=== PATIENT | female | born 1995 ===

== ENCOUNTER 2022-10-29 21:55 | Emergency (ER) | payer SELFPAY ==
[2022-10-29 22:25] VITALS: BP 113/72; PULSE 86; RESP 16; TEMP 36; O2SAT 97; BMI 46.4
== END 2022-10-30 00:16 | disposition left against medical advice (07) ==
PROVIDERS: Emergency Provider Emergency Medicine
DX: S99.929A Unspecified injury of unspecified foot, initial encounter (principal); W20.8XXA Other cause of strike by thrown, projected or falling object, initial encounter; Y93.9 Activity, unspecified; Y92.9 Unspecified place or not applicable; Y99.0 Civilian activity done for income or pay
CPT/HCPCS: 99281

== ENCOUNTER 2023-03-20 08:30 | Emergency (ER) | payer OTHER, SELFPAY ==
--- NOTE | ~2023-03-20 | XR_ITS ---
EXAMINATION: XR KNEE, LEFT CLINICAL INFORMATION: Left knee pain. COMPARISON: None available. TECHNIQUE: Four views of the left knee. FINDINGS: Alignment is anatomic. Joint spaces are maintained. No displaced fracture. No significant joint effusion. XR/XR knee LT 2V IMPRESSION: No acute abnormality.
[2023-03-20 08:32] VITALS: BP 140/74; PULSE 98; RESP 16; TEMP 36.6; O2SAT 98; BMI 42.5
--- NOTE | 2023-03-20 10:13 | ED_ITS ---
HPI - General Adult General Chief complaint: Extremity Injury, Lower Stated complaint: L knee injury Time Seen by Provider: 03/20/23 09:20 Source: patient Mode of arrival: ambulatory Limitations: no limitations History of Present Illness HPI narrative: 27-year-old female presents to ED for left knee injury. Patient states fell on an escalator this morning. Patient states she fell onto her left knee only. Patient denies hitting head or loss of consciousness. Patient states no other complaints. Patient up-to-date with tetanus Related Data Previous Rx's Medication Instructions Recorded naproxen 500 mg tablet 500 mg PO BID PRN pain 7 days #14 03/20/23 tabs Allergies Allergy/AdvReac Type Severity Reaction Status Date / Time No Known Allergies Allergy Unverified 10/29/22 22:30 Review of Systems 2 Review of Systems: left knee injury Yes all other systems are reviewed and are negative [facility] Social History Social History Advance Directives: No Advance Directives Information Provided: Yes Physical Exam ED Vital Signs: Vital Signs - 24 hr 03/20/23 08:32 Temperature 97.8 F Pulse Rate 98 Respiratory Rate 16 Blood Pressure 140/74 H Pulse Oximetry 98 Oxygen Delivery Method Room Air BMI result Body Mass Index 42.5 Const General: cooperative, healthy appearing, comfortable, no acute distress, well developed, alert, awake and Physically active Orientation/consciousness: oriented to person, oriented to place, oriented to time and patient oriented x3 HENMT Head: Yes normal to inspection, Yes No palpable skull fracture present, Yes normocephalic, Yes atraumatic and No abrasion Eyes General: appearance normal, both eyes and all related structures Neck Neck: Yes normal visual inspection, Yes full ROM, Yes no lymphadenopathy, Yes no meningeal signs, Yes trachea midline, Yes supple, No anterior neck swelling and No tender Chest Chest palpation & inspection: normal inspection of the chest and normal palpation of entire chest wall Resp Effort & Inspection: normal respiratory effort and able to speak in complete sentences Auscultation: clear to auscultation bilaterally Cardio Jugular venous distension: no JVD Heart sounds: S1 normal heart sound present and S2 normal heart sound present GI Inspection: Yes normal to inspection Palpation (GI): Soft to palpation, not firm, nontender, no guarding and not rigid General: Yes no CVA tenderness Back/Spine/Pelvis Back: no CVA tenderness and No back tenderness Skin General skin exam: no rashes or lesions noted, elasticity normal and turgor normal Neuro General: oriented to person, oriented to place, oriented to time, patient oriented x3, gait normal, tone normal, moves all extremities, Normal light touch and pain sensation, no meningeal signs, no focal motor deficits, CN's II-XI intact bilaterally and normal sensation to monofilament Extrem General: Yes normal to inspection and Yes full ROM Knee images: 2 1. small abrasions. tenderness around palpation of knee. negative for any deformity, erythema, ecchymosis, stiffness, or elasticity. Whole extremity motor/neuro /vascular exam intact. Psych Appearance: grossly normal, well kempt and not disheveled Medical Decision Making Medical Decision Making MDM Narrative: 27-year-old female healthy presents to ED for left knee pain after falling onto knee on escalator. Small abrasion does not need laceration repair. Up-to-date with tetanus. X-ray negative for fracture. Patient does not want any pain meds. Differential Diagnosis Differential Diagnoses: The differential diagnosis associated with the presentation includes ( knee fracture. Knee dislocation.) Admission/Observation Consideration of admission/observation: Escalation of care including admission/observation considered Independent Interpretation I performed an independent interpretation of an: Plain X-Ray Radiology Impression Discussion of test interpretation with radiology: I have reviewed the radiologist's reading. External Record Review External record reviewed: Other (Prior visits) Prescription Management I considered prescription management with: Pain Medication Discharge Plan Discharge Clinical Impression: Contusion of knee Patient Disposition: Home, Self-Care Instructions: Contusion in Adults (ED) Additional Instructions: Your knee x-ray came back normal. Return to the ED immediately for any redness, swelling, stiffness, bluish black discoloration, foul odor, pus discharge, worsening pain, inability to walk, or any other concerning symptoms. Please follow-up your primary care provider. recommend rest, elevation, and ice the extremity Prescriptions: New naproxen 500 mg tablet 500 mg PO BID PRN (Reason: pain) 7 Days Qty: 14 0RF Stand Alone Forms: Work/School Release Interventions: ED Discharge Assessment Last Done: 03/20/23 10:57 Discharge Date/Time: 03/20/23 10:59 Print Language: Bahamian
== END 2023-03-20 10:59 | disposition home or self-care (01) ==
PROVIDERS: Emergency Provider Emergency Medicine Emergency Medical Services
DX: S80.02XA Contusion of left knee, initial encounter (principal); W10.0XXA Fall (on)(from) escalator, initial encounter; Y93.9 Activity, unspecified; Y92.9 Unspecified place or not applicable; Y99.9 Unspecified external cause status
CPT/HCPCS: 73560; 99283

== ENCOUNTER 2023-03-25 10:13 | Emergency (ER) | payer OTHER, SELFPAY ==
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
[2023-03-25 11:33] VITALS: BP 113/76; PULSE 71; RESP 16; TEMP 36.2; O2SAT 98; BMI 42.5
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
== END 2023-03-25 14:29 | disposition home or self-care (01) ==
PROVIDERS: Emergency Provider Emergency Medicine
DX: S16.1XXA Strain of muscle, fascia and tendon at neck level, initial encounter (principal); S50.01XA Contusion of right elbow, initial encounter; V43.62XA Car passenger injured in collision with other type car in traffic accident, initial encounter; Y93.89 Activity, other specified; Y92.414 Local residential or business street as the place of occurrence of the external cause; Y99.9 Unspecified external cause status
CPT/HCPCS: 73080; 99283

== ENCOUNTER 2024-03-20 11:53 | Emergency (ER) | payer OTHER, SELFPAY ==
--- NOTE | ~2024-03-20 | XR_ITS ---
CLINICAL HISTORY: Chest pain 1 view chest x-ray. Comparison: None Findings: The lungs are adequately expanded. No focal consolidation. No effusion or pneumothorax. Cardiac and mediastinal contours are within normal limits. No acute osseous abnormality Impression: No acute process. This document has been electronically signed by: Daron Romero MD on 03/20/2024 12:36:39
[2024-03-20 12:12] VITALS: BP 113/82; PULSE 82; RESP 18; TEMP 36.8; O2SAT 98; BMI 46.2
--- NOTE | 2024-03-20 12:15 | ED_ITS ---
HPI - General Adult General Chief complaint: Upper Respiratory Symptoms Stated complaint: URI Time Seen by Provider: 03/20/24 13:06 Source: patient Mode of arrival: ambulatory Limitations: no limitations History of Present Illness ED Provider: JÚNIOR BAILEY PA-C HPI narrative: 28 year old female presents to the ED today for evaluation of headache, dry cough, sneezing and nausea without vomiting x5 days. worsening yesterday. No known sick contacts. Denies fever, chills, sore throat, sputum production, vomiting, diarrhea, abdominal pain, sob. Related Data Previous Rx's ?Medication ?Instructions ?Recorded naproxen 500 mg tablet 500 mg PO BID PRN pain 7 days #14 03/20/23 tabs ibuprofen 600 mg tablet 600 mg PO Q6H PRN pain #20 tabs 03/25/23 benzonatate 100 mg capsule 100 mg PO BID PRN cough #20 caps 03/20/24 penicillin V potassium 500 mg 500 mg PO BID 10 days #20 tabs 03/20/24 tablet Allergies Allergy/AdvReac Type Severity Reaction Status Date / Time No Known Allergies Allergy Verified 03/20/24 12:15 Review of Systems Review of Systems: Constitutional: No fever, chills, fatigue, night sweats, weight changes ENT/Mouth: No ear pain, hearing loss, nasal congestion, sinus pain, rhinorrhea, sore throat, odynophagia, dysphagia Eyes: No eye pain, swelling, redness, vision changes, discharge Cardio: No chest pain, palpitations, SILVA, orthopnea, peripheral edema Pulm: No SOB, sputum, wheezing, dyspnea, hemoptysis, +cough GI: No nausea, vomiting, hematemesis, abdominal pain, diarrhea, constipation, hematochezia, melena : No irregular bleeding, dysuria, frequency, urgency, hesitancy, hematuria, flank pain MSK: No back pain, neck pain, joint pain, myalgias Skin: No lesions, rashes Neuro: No weakness, numbness, paresthesias, LOC, dizziness, +headache All other systems reviewed and are negative. [facility] Past Medical History Attestation statement: The following information was validated with the patient. Source: old records reviewed and nursing notes reviewed Social History Social History Advance Directives: No Advance Directives Information Provided: No Do you have a plan to hurt others: No Plan Physical Exam ED Vital Signs: Vital Signs - 24 hr 03/20/24 12:12 03/20/24 14:26 Temperature 98.2 F 98.2 F Pulse Rate 82 82 Respiratory Rate 18 18 Blood Pressure 113/82 113/82 Pulse Oximetry 98 98 Oxygen Delivery Method Room Air Room Air BMI result Body Mass Index 46.2 Vital signs stable, afebrile General: Well appearing, in no acute distress. Skin: Warm, dry, intact. No rashes or lesions. Head: Normocephalic, atraumatic. EENT: Hearing is intact b/l. PERRLA. EOM intact. Moist mucous membranes.? Posterior oropharynx mildly erythematous without edema. No tonsillar exudates or peritonsillar masses. Uvula midline. Controlling secretions and speaking in complete sentences. Neck: Supple without LAD Cardiac: Chest wall symmetric. RRR. No MRG. No JVD. Lungs: Normal respiratory effort without accessory muscle use. CTA bilaterally. No rales, rhonchi, or wheezes.? Abdomen: Soft, non-tender, non-distended. No rebound tenderness or guarding. Neuro: AOx3. Normal speech. Ambulating with steady gait. Course Course Course Narrative: RME: 28-year-old female presents to the ED for URI symptoms concerns of cough fever chills headache and body aches. 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 SARs strep chest x-ray ordered. Well-appearing Reevaluation(s) Reevaluation #1: Negative for flu, COVID, RSV. Chest x-ray without focal consolidation or infiltrate to suggest pneumonia. She was tested positive for strep pharyngitis. Will send penicillin to pharmacy for treatment. Tessalon sent to pharmacy for cough. Patient has remained stable throughout ED visit today. Discussed worrisome signs and symptoms and when to return to the ED. All questions answered at this time. Patient is agreeable with disposition and stable for discharge. Medical Decision Making Medical Decision Making MDM Narrative: 28 year old female presents to the ED today for evaluation of headache, dry cough, sneezing and nausea without vomiting x5 days. Vital signs stable, afebrile. She is nontoxic-appearing and in no acute distress. Exam is quite benign. Clinical concern for strep throat, pneumonia, bronchitis, viral syndrome. Unlikely [employer], retropharyngeal abscess, dental abscess, epiglottis, acute respiratory distress. Viral swabs, strep swabs and chest x-ray obtained prior to my assumption of care. Plan to review and re-evaluate. Differential Diagnosis Differential Diagnoses: The differential diagnosis associated with the presentation includes as above. Admission/Observation Not indicated Lab Data MDM Lab Attestation statement: I reviewed the patient's lab results. as above Labs: Lab Results 03/20/24 Range/Units 12:19 Influenza Type A (PCR) NEGATIVE (Negative) Influenza Type B (PCR) NEGATIVE (Negative) RSV RNA Qual (PCR) NEGATIVE (Negative) SARS-CoV-2 RNA (RT-PCR) NEGATIVE (Negative) S. pyogenes GrpA REESE Positive A (Negative) Independent Interpretation I performed an independent interpretation of an: Plain X-Ray Interpretation: Chest x-ray without focal consolidation or infiltrate Radiology Impression Discussion of test interpretation with radiology: I have reviewed the radiologist's reading. Radiologist Impression: Procedure(s): XR chest 1V Accession Number(s): [id number] cc: Jax Walker; Physician,None ~ CLINICAL HISTORY: Chest pain 1 view chest x-ray. Comparison: None Findings: The lungs are adequately expanded. No focal consolidation. No effusion or pneumothorax. Cardiac and mediastinal contours are within normal limits. No acute osseous abnormality Impression: No acute process. This document has been electronically signed by: Daron Romero MD on 03/20/2024 12:36:39 External Record Review External record reviewed: Inpatient record Prescription Management I considered prescription management with: Antibiotic (Penicillin) and Other (Tessalon Perles) Social Determinants Patient?s care significantly limited by Social Determinants of Health including: Other Social Determinant of Health Critical Care Time Critical Care Time Critical Care Time: No Discharge Plan Discharge Clinical Impression: Strep pharyngitis Patient Disposition: Home, Self-Care Instructions: Pharyngitis (ED), Strep Throat (ED) Additional Instructions: You tested positive for strep throat. You tested negative for covid, flu, and rsv. Your chest xray is normal. Penicillin is an antibiotic that has been sent to your pharmacy. Take this twice daily for the next 10 days to treat strep throat. Do not stop taking these antibiotics early or miss any doses as this may cause infection to return or worsen. Tessalon perles have been sent to your pharmacy for you to take as needed for cough. Take Tylenol and ibuprofen as needed for body aches or fevers. Make sure to change your toothbrush as this contains bacteria. Strep throat is contagious. If anyone else in your household is exhibiting symptoms, please advise them to come to the ED, urgent care, or to see their primary care provider. Follow up with your primary care provider this week. Return to the Emergency Department if you experience worsening or uncontrolled pain, tongue swelling, difficulty swallowing, change in your voice, difficulty breathing, fevers 100.4?F or greater, recurrent vomiting, development of a rash, or any other concerning symptoms. In the case of emergency, call 911.? Prescriptions: New penicillin V potassium 500 mg tablet 500 mg PO BID 10 Days Qty: 20 0RF benzonatate 100 mg capsule 100 mg PO BID PRN (Reason: cough) Qty: 20 0RF No Action ibuprofen 600 mg tablet 600 mg PO Q6H PRN (Reason: pain) Qty: 20 0RF naproxen 500 mg tablet 500 mg PO BID PRN (Reason: pain) 7 Days Qty: 14 0RF Referrals: [facility] – [place] Family Medicine [Provider Group] [facility] – [place] [facility] [Provider Group] [facility] – [place] [facility] [Provider Group] Stand Alone Forms: Work/School Release Interventions: ED Discharge Assessment Last Done: 03/20/24 14:26 Discharge Date/Time: 03/20/24 14:26 Print Language: French
[2024-03-20 12:40] LABS: IDNOW Serial# 58CA691E; Strep A Nucleic Acid Positive (Negative)
[2024-03-20 13:17] LABS: Influenza A PCR NEGATIVE (Negative); Influenza B PCR NEGATIVE (Negative); Resp Syncy Virus RNA Qual PCR NEGATIVE (Negative); SARS COV2 PCR INHOUSE NEGATIVE (Negative)
[2024-03-20 14:26] VITALS: BP 113/82; PULSE 82; RESP 18; TEMP 36.8; O2SAT 98
== END 2024-03-20 14:26 | disposition home or self-care (01) ==
PROVIDERS: Physician Assistant; Emergency Provider Emergency Medicine
DX: J02.0 Streptococcal pharyngitis (principal); R05.9 Cough, unspecified; R51.9 Headache, unspecified; R07.89 Other chest pain; R11.0 Nausea; Z03.818 Encounter for observation for suspected exposure to other biological agents ruled out
CPT/HCPCS: 0241U; 71045; 87651; 99282; 99283; 99284

== ENCOUNTER → 2024-03-20 12:14 | Outpatient (BNV) | payer OTHER, SELFPAY | PROVIDERS: Visit Provider Radiology Vascular & Interventional Radiology | DX: R07.9 Chest pain, unspecified (principal) | CPT/HCPCS: 71045 ==

== ENCOUNTER 2024-08-20 16:49 | Emergency (ER) | payer OTHER, SELFPAY ==
[2024-08-20 16:53] VITALS: BP 120/75; PULSE 92; RESP 18; TEMP 36.8; O2SAT 95; BMI 44.8
--- NOTE | 2024-08-20 16:53 | ED_ITS ---
HPI - General Adult General Chief complaint: Abdominal Pain Stated complaint: abd pain Time Seen by Provider: 08/20/24 18:56 Source: patient Limitations: no limitations History of Present Illness ED Provider: Letha Brown PA-C HPI narrative: 28-year-old female presents with suprapubic pain x2 days. Pain focal to the suprapubic region, unable to describe the nature of her symptoms. Patient states the discomfort fluctuates in intensity, with the associated urinary urgency. Denies dysuria, hematuria, history of kidney stones. Denies nausea vomiting, back pain or fever. Patient also states she has had ongoing vaginal discharge that is foul smelling. She has had symptoms for over a year, she denies risk for STD. Patient states she has used multiple [id number] products without relief from her symptoms. Related Data Previous Rx's ?Medication ?Instructions ?Recorded naproxen 500 mg tablet 500 mg PO BID PRN pain 7 day s #14 03/20/23 tabs ibuprofen 600 mg tablet 600 mg PO Q6H PRN pain #20 t abs 03/25/23 benzonatate 100 mg capsule 100 mg PO BID PRN cough #20 caps 03/20/24 penicillin V potassium 500 mg 500 mg PO BID 10 days #2 0 tabs 03/20/24 tablet cephalexin 500 mg capsule 500 mg PO Q12H #13 caps 07/10 metronidazole 500 mg tablet 500 mg PO BID 7 days #13 t abs 08/20/24 Allergies Allergy/AdvReac Type Severity Reaction Status Date / Time No Known Allergies Allergy Verified 08/20/24 16:54 Review of Systems 2 Review of Systems: Yes all other systems are reviewed and are negative Constitutional: Constitutional: Denies fatigue and Denies fever(s) Cardiovascular: Cardiovascular: Denies chest pain Gastrointestinal: Gastrointestinal: Reports abdominal pain, Denies nausea and Denies vomiting Genitourinary: Genitourinary: Denies dysuria, Denies pelvic pain, Denies flank pain, Reports urinary urgency, Reports vaginal discharge, Reports vaginal odor and Denies vaginal pruritus Musculoskeletal: Musculoskeletal: Denies back pain Endocrine: Endocrine: Denies fatigue PMF Past Medical History Attestation statement: The following information was validated with the patient. Social History Social History Advance Directives: No Advance Directives Information Provided: Yes Physical Exam ED Vital Signs: Vital Signs - 24 hr 08/20/24 16:53 08/20/24 18:48 Temperature 98.3 F 98.5 F Pulse Rate 92 80 Respiratory Rate 18 14 Blood Pressure 120/75 111/73 Pulse Oximetry 95 99 Oxygen Delivery Method Room Air Room Air BMI result Body Mass Index 44.8 Const Other: Alert well-appearing Orientation/consciousness: patient oriented x3 Resp Effort & Inspection: normal respiratory effort Cardio Other: Normal peripheral perfusion GI Other: Mild tenderness over suprapubic region without guarding Other: Normal external genitalia, scant amount of clear discharge noted, cervix is pink, it is not friable, no CMT no adnexal tenderness Skin Other: Warm dry no rash Neuro General: patient oriented x3, gait normal, no focal motor deficits and CN's II- XI intact bilaterally Psych Other: Cooperative Course Course Course Narrative: RME performed by Sarah Sharma PA-C. Patient is a 28 year old assigned female at presenting to the emergency department with abdominal pain. Detailed physical exam and review of systems are deferred to the food and beverage assistant manager. Labs ordered. Patient placed back in the waiting room pending room availability and results. Medical Decision Making Medical Decision Making [facility] Narrative: 28-year-old female presents with suprapubic pain x2 days. Pain focal to the suprapubic region, unable to describe the nature of her symptoms. Patient states the discomfort fluctuates in intensity, with the associated urinary urgency. Denies dysuria, hematuria, history of kidney stones. Denies nausea vomiting, back pain or fever. Patient also states she has had ongoing vaginal discharge that is foul smelling. She has had symptoms for over a year, she denies risk for STD. Patient states she has used multiple hkcc-agl-tayomhn products without relief from her symptoms. No known chronic issues History: Per patient I have considered the following differential diagnoses: UTI, pyelonephritis, renal colic, BV, STD, TOA Plan: Screening labs including a urinalysis were obtained from triage, it appears she may have a UTI. Performed pelvic exam, it was unremarkable, GC chlamydia and BV panel were obtained. No indication for transvaginal ultrasound. Given the duration of the patient's symptoms, she likely has BV that has not clearing, we will empirically treat per the patient's request. I have independently reviewed the following tests: Labs: No leukocytosis, not anemic, not , urine appears infected GC chlamydia and BV panel pending Lab Data 08/20/24 17:40 08/20/24 17:40 Labs: Lab Results 08/20/24 Range/Units 17:40 WBC 10.9 H (4.8-10.8) X10*3/uL RBC 3.94 L (4.20-5.50) X10*6/uL Hgb 12.0 (12.0-16.0) g/dl Hct 35.8 L (37.0-47.0) % MCV 90.9 (80.0-98.0) fL MCH 30.5 (27.0-33.0) pg MCHC 33.5 (31.0-35.0) g/dl RDW 14.4 (11.0-16.0) % Plt Count 262 (160-400) X10*3/uL MPV 10.4 (9.4-12.3) fL Immature Gran % (Auto) 0.4 (0.0-0.4) % Neut % (Auto) 66.3 (45-73) % Lymph % (Auto) 26.2 (20-40) % [place] % (Auto) 6.0 (2-11) % Eos % (Auto) 0.5 (0-4) % Baso % (Auto) 0.6 (0-2) % Lymph # (Auto) 2.9 (1.2-4.9) X10*3/uL [place] # (Auto) 0.7 (0.1-1.2) X10*3/uL Eos # (Auto) 0.1 (0.0-0.4) X10*3/uL Baso # (Auto) 0.1 (0.0-0.2) X10*3/uL Abs Immat Gran (auto) 0.04 H (0.00-0.03) X10*3/uL Absolute Neuts (auto) 7.2 (2.0-8.3) x10*3/uL Absolute Nucleated RBC 0.000 (0.0-0.012) X10*3/uL Nucleated RBC % (auto) 0.0 (0.0-0.2) /100WBC Sodium 143 (135-145) mmol/L Potassium 3.9 (3.3-5.1) mmol/L Chloride 111 H (96-108) mmol/L Carbon Dioxide 23 (22-29) mmol/L Anion Gap 13 (12-20) BUN 16 (9-16) mg/dL Creatinine 0.76 (0.5-1.4) mg/dL Estim Creat Clear Calc 133.4 Estimated GFR > 60 Random Glucose 89 (60-115) mg/dL Calcium 9.2 (8.4-10.2) mg/dL Magnesium 2.1 (1.6-2.6) mg/dL Total Bilirubin 0.5 (0.0-1.0) mg/dL AST 36 H (5-31) U/L ALT 41 H (0-31) U/L Alkaline Phosphatase 86 (39-117) U/L Total Protein 7.1 (6.5-8.0) g/dL Albumin 4.5 (3.5-5.0) g/dL Beta HCG, Quant < 2 mIU/mL Urine Color Dark Yellow Urine Appearance Clear Urine pH 6.0 (5.0-9.0) Ur Specific [place] >= 1.030 H (1.005-1.025) Urine Protein 30 (1+) H (Neg-Trace) mg/dL Urine Glucose (UA) Negative (Negative) mg/dL Urine Ketones Trace (Negative) mg/dL Urine Blood Trace H (Negative) Urine Nitrite Negative (Negative) Ur Leukocyte Esterase Small (1+) H (Negative) Urine RBC 6-10 H (0-2) /HPF Urine WBC 21-50 H (0-5) /HPF Ur Squamous Epith Cells 11-20 (0-2) /HPF Urine Bacteria 1+ (None Seen) Hyaline Casts 0-2 (0-2) /LPF Influenza Type A (PCR) NEGATIVE (Negative) Influenza Type B (PCR) NEGATIVE (Negative) RSV RNA Qual (PCR) NEGATIVE (Negative) SARS-CoV-2 RNA (RT-PCR) NEGATIVE (Negative) Discharge Plan Discharge Clinical Impression: Bacterial vaginosis, Urinary tract infection Patient Disposition: Home, Self-Care Instructions: Bacterial Vaginosis (ED), Urinary Tract Infection in Women (ED) Additional Instructions: You are being treated for urinary tract infection and suspect bacterial vaginosis. Take both antibiotics as directed. You have vaginal cultures pending, you will be contacted if you require additional treatment. Otherwise follow up with your crime prevention worker as needed. Prescriptions: New cephalexin 500 mg capsule 500 mg PO Q12H Qty: 13 0RF metronidazole 500 mg tablet 500 mg PO BID 7 Days Qty: 13 0RF No Action ibuprofen 600 mg tablet 600 mg PO Q6H PRN (Reason: pain) Qty: 20 0RF naproxen 500 mg tablet 500 mg PO BID PRN (Reason: pain) 7 Days Qty: 14 0RF penicillin V potassium 500 mg tablet 500 mg PO BID 10 Days Qty: 20 0RF benzonatate 100 mg capsule 100 mg PO BID PRN (Reason: cough) Qty: 20 0RF Print Language: Com[place]
[2024-08-20 17:47] LABS: MANUAL DIFF FLAG NO
[2024-08-20 17:50] LABS: Appearance Urine Clear; Glucose Urine UA Negative (Negative); PH 6.0 (5.0-9.0); Specific Gravity - Urine >= 1.030 (1.005-1.025); UMIC TRIGGER UACC YES
[2024-08-20 17:54] LABS: UACC Culture Trigger YES
[2024-08-20 18:05] LABS: Hematocrit 35.8 % (37.0-47.0); Hemoglobin 12.0 g/dl (12.0-16.0); Imm Gran Abs Auto 0.04 X10*3/uL (0.00-0.03); Imm Gran Pct Auto 0.4 % (0.0-0.4); Lymphocytes Absolute Auto 2.9 X10*3/uL (1.2-4.9); Mean Corpuscular HGB Conc 33.5 g/dl (31.0-35.0); Mean Corpuscular Hemoglobin 30.5 pg (27.0-33.0); Mean Corpuscular Volume 90.9 fL (80.0-98.0); NRBC Abs Auto 0.000 X10*3/uL (0.0-0.012); NRBC Pct Auto 0.0 /100WBC (0.0-0.2); Platelet Count 262 X10*3/uL (160-400); Red Blood Count 3.94 X10*6/uL (4.20-5.50); White Blood Count 10.9 X10*3/uL (4.8-10.8)
[2024-08-20 18:13] LABS: Alanine Aminotransferase 41 U/L (0-31); Albumin Level 4.5 g/dL (3.5-5.0); Alkaline Phosphatase 86 U/L (39-117); Anion Gap 13 (12-20); Aspartate Amino Transferase 36 U/L (5-31); Blood Urea Nitrogen 16 mg/dL (9-16); Calcium 9.2 mg/dL (8.4-10.2); Carbon Dioxide 23 mmol/L (22-29); Chloride 111 mmol/L (96-108); Creatinine Clr Calc Pharmacy 133.4; Estimated Glomerular Filt Rate > 60; Magnesium 2.1 mg/dL (1.6-2.6); Potassium 3.9 mmol/L (3.3-5.1); Sodium 143 mmol/L (135-145); Total Protein 7.1 g/dL (6.5-8.0)
[2024-08-20 18:33] LABS: Resp Syncy Virus RNA Qual PCR NEGATIVE (Negative); SARS COV2 PCR INHOUSE NEGATIVE (Negative)
[2024-08-20 18:48] VITALS: BP 111/73; PULSE 80; RESP 14; TEMP 36.9; O2SAT 99
[2024-08-20 19:58] VITALS: BP 111/73; PULSE 80; RESP 14; TEMP 36.9; O2SAT 99
[2024-08-21 09:34] LABS: Bacterial Vaginosis PCR POSITIVE (Negative); Candida Group PCR NOT DETECTED (Not Detect); Candida glab krusei PCR NOT DETECTED (Not Detect); Trichomonas vaginalis PCR DETECTED (Not Detect)
[2024-08-21 10:05] LABS: CT PCR NOT DETECTED (Not Detect.); NG PCR NOT DETECTED (Not Detect.)
== END 2024-08-20 20:17 | disposition home or self-care (01) ==
PROVIDERS: Physician Assistant Medical; Emergency Provider Internal Medicine
DX: N76.0 Acute vaginitis (principal); N39.0 Urinary tract infection, site not specified; R10.9 Unspecified abdominal pain; R39.15 Urgency of urination
CPT/HCPCS: 80053; 81001; 81515; 83735; 84702; 85025; 87086; 87491; 87591; 87637; 99283; 99284